=== PATIENT | male | born 1980 ===

== ENCOUNTER 2021-04-29 15:29 | Emergency (ER) | payer SELFPAY ==
[~2021-04-29] VITALS: Ht 180 cm; Wt 100.0 kg
--- NOTE | 2021-04-29 15:48 | ED Respiratory ---
General Chief Complaint: COVID19 Suspect/Confirmed Stated Complaint: COVID+,LOW OXYGEN,COUGH,WEAKNESS,CONFUSION Source: patient Exam Limitations: no limitations History of Present Illness Date Seen by Provider: Apr 29, 2021 Time Seen by Provider: 15:30 Initial Comments 41yoM otherwise healthy recently COVID positive (at home test this morning which was positive, with symptoms starting around Monday) coming in because his pulse ox was low at home. He said he put on there were 2 numbers and he was unsure which was which. One was around 81 and the other one was in the 90s. He was concerned his oxygen was in the 80s so he presented to the emergency department. Symptoms include loss of taste and smell, weakness generally, difficulty sleeping, cough. Has not been taking any medications. Not vaccinated for COVID. Allergies and Home Medications Allergies Coded Allergies: No Known Drug Allergies (Unverified , 04/29/21) Patient Home Medication List Home Medication List Reviewed: Yes Review of Systems Review of Systems Constitutional: No chills, No fever EENTM: No blurred vision Respiratory: cough, short of breath Cardiovascular: No chest pain Gastrointestinal: No abdominal pain Genitourinary: no symptoms reported Musculoskeletal: no symptoms reported Skin: no symptoms reported Psychiatric/Neurological: No Symptoms Reported Hematologic/Lymphatic: No Symptoms Reported Immunological/Allergic: no symptoms reported All Other Systems Reviewed Negative Unless Noted: Yes Past Jiwshrt-Atxivu-Buncrj Hx Patient Social History Tobacco Use?: No Substance use?: No Alcohol Use?: No Physical Exam Vital Signs - First Documented 04/29/21 15:52 Temp 37.0 Pulse 95 Resp 18 B/P (MAP) 119/64 (82) Pulse Ox 96 O2 Delivery Room Air Capillary Refill : Height: '" Weight: lbs. oz. kg; BMI Method: General Appearance: WD/WN, no apparent distress Eyes: Bilateral Eye Normal Inspection HEENT: PERRL/EOMI, normal ENT inspection, pharynx normal Neck: non-tender, full range of motion, supple, normal inspection Respiratory: chest non-tender, lungs clear, normal breath sounds, no respiratory distress, no accessory muscle use Cardiovascular: regular rate, rhythm, no edema, no murmur Gastrointestinal: normal bowel sounds, non tender, soft; No distended, No guarding, No rebound Extremities: normal range of motion, non-tender, normal inspection, no pedal edema, no calf tenderness, normal capillary refill Neurologic/Psychiatric: no motor/sensory deficits, alert, normal mood/affect Skin: normal color, warm/dry Lymphatic: no adenopathy Progress/Results/Core Measures Suspected Sepsis SIRS Temperature: Pulse: Respiratory Rate: Blood Pressure / Mean: Results/Orders My Orders Orders - LAURA ELLIS MD Chest 1 View Ap/Pa Only (04/29/21 16:00) Vital Signs/I&O 04/29/21 15:52 Temp 37.0 Pulse 95 Resp 18 B/P (MAP) 119/64 (82) Pulse Ox 96 O2 Delivery Room Air Capillary Refill : Progress Note : Progress Note 41-year-old male with above history coming in because he thought his oxygen was low at home. ABCs were intact and vitals were stable on presentation. His oxygen here averaged around 98% even with ambulation. Lungs were clear and he is well- appearing. On further questioning, he truly believes he was looking at his pulse which was in the 80s and he believes his oxygen was actually in the high 90s. Chest x-ray here ordered and interpreted by me showing no acute abnormalities including no obvious focal pneumonia or pneumothorax. I believe the patient is stable for discharge with outpatient follow-up. He was sent home with strict return precautions peer Departure Impression Primary Impression: COVID-19 Disposition: 01 HOME, SELF-CARE Condition: Stable Departure-Patient Inst. Decision time for Depature: 16:22 Referrals: LISSETTE BERGERON APRN (PCP/Family) Primary Care Physician Patient Instructions: COVID-19 ED Add. Discharge Instructions: You were seen in the emergency department because you believe your oxygen saturation was low. Fortunately you were around 96 to 98% while in the emergency department at all times. Your pulse was in the 80s most of the time, so I believe you probably worsening her pulse. When you check your oxygen be sure to leave it on for a couple minutes with taking some deep breaths before you get a good reading. If have any concerns then he can call your regular doctor or come back to the ER. Work/School Note: Work Release Form Date Seen in the Emergency Department: Apr 29, 2021 Return to Work: May 10, 2021 Restrictions: Return-No Fever (24hrs) LAURA ELLIS MD Apr 29, 2021 15:48
[2021-04-29 15:52] VITALS: BP 119/64
--- NOTE | 2021-04-29 18:19 | Diagnostic Imaging Report ---
INDICATION: Cough COMPARISON: None. FINDINGS: Frontal view of the chest demonstrates clear lungs bilaterally. The heart size is normal. There is no pneumothorax. Osseous structures are normal. IMPRESSION: No acute findings. Normal chest. Dictated by: Dictated on workstation # [id number]
== END 2021-04-29 16:36 | disposition home or self-care (01) ==
LOC: ER FS 15:32
DX: U07.1 COVID-19 (principal)
CPT/HCPCS: 71045; 99281

== ENCOUNTER 2021-08-23 06:34 | Emergency (ER) | payer OTHER ==
[~2021-08-23] VITALS: Ht 180.3 cm; Wt 109.0 kg
[2021-08-23] MEDS ORDERED: KETOROLAC 30 MG/ML VIAL IVP STA (07:01)
--- NOTE | 2021-08-23 07:05 | ED Abdominal Pain ---
General Chief Complaint: Abdominal/GI Problems Stated Complaint: LOWER ABDOMINAL PAIN Nursing Triage Note: Patient arrival per POV ambulatory to ED 6 reporting awakening this a.m. at 0200 with LLQ abd pain. Pt reports having BM x 2 that were normal. History of Present Illness Date Seen by Provider: Aug 23, 2021 Time Seen by Provider: 06:50 Initial Comments 41-year-old male presents with left lower quadrant abdominal pain. Reports that he woke up around 2:00 with some sharp stabbing pain. That he had one episode of vomiting. Patient reports he has had 2 soft bowel movements that were normal this morning. He reports that a couple days ago he had some back pain but that was after, working and bending a lot. He denies any nausea at this time. He had a little bit of chills right prior to vomiting but none since then. Allergies and Home Medications Allergies Coded Allergies: No Known Drug Allergies (Unverified , 04/29/21) Patient Home Medication List Home Medication List Reviewed: Yes Ondansetron (Ondansetron Odt) 4 Mg Tab.rapdis, 4 MG PO Q6H PRN for NAUSEA/VOMITING Prescribed by: TESFAYE STAUFFER on 08/23/21 0850 Sulfamethoxazole/Trimethoprim (Bactrim Ds Tablet) 1 Each Tablet, 1 EACH PO BID Prescribed by: TESFAYE STAUFFER on 08/23/21 0850 Tamsulosin HCl (Flomax) 0.4 Mg Cap, 0.4 MG PO DAILY Prescribed by: TESFAYE STAUFFER on 08/23/21 0850 Review of Systems Review of Systems Constitutional: chills; No fever, No weakness Respiratory: Denies Cough, Denies Shortness of Air Cardiovascular: Denies Chest Pain, Denies Palpitations Gastrointestinal: Abdominal Pain; Denies Constipated, Denies Diarrhea; Nausea, Vomiting Genitourinary: No Symptoms Reported Musculoskeletal: see HPI Skin: no symptoms reported Psychiatric/Neurological: No Symptoms Reported Endocrine: No Symptoms Reported Past Uibdhjw-Nknjtl-Pitvbh Hx Patient Social History Tobacco Use?: No Smoking Status: Never a Smoker Smokeless Tobacco Frequency: Never a User Use of E-Cig and/or Vaping Gregory: Never a User Alcohol Use?: Yes Alcohol Frequency: Once in a while Pt feels they are or have been: No Immunizations Up To Date Influenza Vaccine Up-to-Date: No; Not Current First/Initial COVID19 Vaccinat: unvaccinated Second COVID19 Vaccination Juno: unvaccinated Physical Exam Vital Signs Vital Signs - First Documented 08/23/21 06:41 Temp 36.7 Pulse 77 Resp 18 B/P (MAP) 142/88 (106) Pulse Ox 96 O2 Delivery Room Air Capillary Refill : Less Than 3 Seconds Height/Weight/BMI Height: '" Weight: lbs. oz. kg; 33.00 BMI Method: General Appearance: WD/WN, no apparent distress Respiratory: lungs clear, normal breath sounds, no respiratory distress Cardiovascular: normal peripheral pulses, regular rate, rhythm Gastrointestinal: soft; No distended, No guarding, No rebound; tenderness (Mild tenderness left lower quadrant) Back: no CVA tenderness Neurologic/Psychiatric: alert, normal mood/affect, oriented x 3 Skin: normal color, warm/dry Progress/Results/Core Measures Results/Orders Lab Results Laboratory Tests Test 08/23/21 06:46 08/23/21 07:21 Range/Units White Blood Count 7.7 4.3-11.0 10^3/uL Red Blood Count 5.19 4.30-5.52 10^6/uL Hemoglobin 15.5 13.3-17.7 g/dL Hematocrit 43 40-54 % Mean Corpuscular Volume 83 80-99 fL Mean Corpuscular Hemoglobin 30 25-34 pg Mean Corpuscular Hemoglobin Concent 36 32-36 g/dL Red Cell Distribution Width 11.6 10.0-14.5 % Platelet Count 230 130-400 10^3/uL Mean Platelet Volume 10.4 9.0-12.2 fL Immature Granulocyte % (Auto) 1 % Neutrophils (%) (Auto) 60 42-75 % Lymphocytes (%) (Auto) 26 12-44 % Monocytes (%) (Auto) 9 0-12 % Eosinophils (%) (Auto) 4 0-10 % Basophils (%) (Auto) 1 0-10 % Neutrophils # (Auto) 4.6 1.8-7.8 10^3/uL Lymphocytes # (Auto) 2.0 1.0-4.0 10^3/uL Monocytes # (Auto) 0.7 0.0-1.0 10^3/uL Eosinophils # (Auto) 0.3 0.0-0.3 10^3/uL Basophils # (Auto) 0.1 0.0-0.1 10^3/uL Immature Granulocyte # (Auto) 0.0 0.0-0.1 10^3/uL Sodium Level 140 135-145 MMOL/L Potassium Level 4.4 3.6-5.0 MMOL/L Chloride Level 103 98-107 MMOL/L Carbon Dioxide Level 26 21-32 MMOL/L Anion Gap 11 5-14 MMOL/L Blood Urea Nitrogen 15 7-18 MG/DL Creatinine 1.17 0.60-1.30 MG/DL Estimat Glomerular Filtration Rate 81 BUN/Creatinine Ratio 13 Glucose Level 129 H 70-105 MG/DL Calcium Level 9.2 8.5-10.1 MG/DL Corrected Calcium 8.5-10.1 MG/DL Total Bilirubin 0.9 0.1-1.0 MG/DL Aspartate Amino Transf (AST/SGOT) 20 5-34 U/L Alanine Aminotransferase (ALT/SGPT) 28 0-55 U/L Alkaline Phosphatase 69 40-136 U/L C-Reactive Protein < 0.30 <0.50 MG/DL Total Protein 7.2 6.4-8.2 GM/DL Albumin 4.8 H 3.2-4.5 GM/DL Lipase 16 8-78 U/L Urine Color BROWN H Urine Clarity TURBID Urine pH 6.0 5-9 Urine Specific [place] >=1.030 1.016-1.022 Urine Protein 1+ H NEGATIVE Urine Glucose (UA) NEGATIVE NEGATIVE Urine Ketones NEGATIVE NEGATIVE Urine Nitrite NEGATIVE NEGATIVE Urine Bilirubin 1+ H NEGATIVE Urine Urobilinogen 0.2 < = 1.0 MG/DL Urine Leukocyte Esterase NEGATIVE NEGATIVE Urine RBC (Auto) 3+ H NEGATIVE Urine RBC TNTC H /HPF Urine WBC 5-10 H /HPF Urine Squamous Epithelial Cells 0-2 /HPF Urine Crystals NONE /LPF Urine Bacteria FEW H /HPF Urine Casts NONE /LPF Urine Mucus MODERATE H /LPF Urine Culture Indicated YES My Orders Orders - TESFAYE STAUFFER DO Cbc With Automated Diff (08/23/21 07:01) Comprehensive Metabolic Panel (08/23/21 07:01) Lipase (08/23/21 07:01) Ua Culture If Indicated (08/23/21 07:01) Crp Fs (08/23/21 07:01) Ketorolac Injection (Toradol Injection) (08/23/21 07:01) Ondansetron Injection (Zofran Injectio (08/23/21 07:15) Ct Abdomen/Pelvis Wo (08/23/21 07:43) Urine Culture (08/23/21 07:21) Medications Given in ED Current Medications Medications Dose Ordered Sig/Camila Route Start Time Stop Time Status Last Admin Dose Admin Ondansetron HCl 4 mg ONCE ONCE IVP 08/23/21 07:15 08/23/21 07:16 DC 08/23/21 07:08 4 MG Vital Signs/I&O 08/23/21 06:41 Temp 36.7 Pulse 77 Resp 18 B/P (MAP) 142/88 (106) Pulse Ox 96 O2 Delivery Room Air Blood Pressure Mean: 106 Progress Progress Note : Progress Note Patient with 2 small proximal kidney stones. We will start him on Flomax, give him some Zofran to get his ibuprofen for pain. 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 Recommend he follow-up with Dr. Malloy or other urologist of his choice. Patient stable and discharged home Diagnostic Imaging Diagonstic Imaging: CT Plain Films/CT/US/NM/MRI: abdomen, pelvis Comments Date of Exam:08/23/21 CT ABDOMEN/PELVIS WO PROCEDURE: CT abdomen and pelvis without contrast. TECHNIQUE: Multiple contiguous axial images were obtained through the abdomen and pelvis without the use of intravenous contrast. Auto Exposure Controls were utilized during the CT exam to meet ALARA standards for radiation dose reduction. INDICATION: Left lower quadrant pain, abdominal pain COMPARISON: None available FINDINGS: Minimal left basilar atelectasis. The unenhanced liver and spleen are unremarkable. The adrenal glands are unremarkable. The pancreas is unremarkable. The gallbladder is unremarkable. Tiny nonobstructing right renal calculi. Otherwise, the right kidney and right ureter are unremarkable. A couple of calculi are identified within the proximal left ureter. The largest measures up to 0.4 cm. This is associated with mild left-sided hydroureteronephrosis. Additional tiny left-sided renal calculi are present. No aneurysmal dilatation of the abdominal aorta. Small fat-containing umbilical hernia. The appendix is unremarkable. The urinary bladder is unremarkable. Small prostatic calcifications. No bowel obstruction or pneumatosis. No significant adenopathy, free air, or free fluid in abdomen or pelvis. Mild scattered osseous degenerative changes without acute osseous abnormality. IMPRESSION: 2 calculi are present within the proximal left ureter resulting in mild left hydroureteronephrosis, with largest stone measuring up to 0.4 cm. Additional bilateral small renal calculi, nonobstructing on the right. Reviewed: Reviewed by Me, Reviewed/Discussed Departure Impression Primary Impression: Calculus of proximal left ureter Disposition: HOME, SELF-CARE Condition: Stable Departure-Patient Inst. Referrals: LISSETTE BERGERON APRN (PCP/Family) Primary Care Physician Patient Instructions: Kidney Stones in Adults, How to Strain Your Urine Add. Discharge Instructions: Ibuprofen 600 to 800 mg 3-4 times daily as needed for pain Follow-up with the urologist of your choice for further outpatient management and recheck Return to the ER as needed All discharge instructions reviewed with patient and/or family. Voiced understanding. Scripts Sulfamethoxazole/Trimethoprim (Bactrim Ds Tablet) 1 Each Tablet 1 EACH PO BID for 5 Days, #10 TAB . Prov: TESFAYE STAUFFER DO 08/23/21 Tamsulosin HCl (Flomax) 0.4 Mg Cap 0.4 MG PO DAILY, #14 CAP . Prov: TESFAYE STAUFFER DO 08/23/21 Ondansetron (Ondansetron Odt) 4 Mg Tab.rapdis 4 MG PO Q6H PRN for NAUSEA/VOMITING, #20 TAB 0 Refills . Prov: TESFAYE STAUFFER DO 08/23/21 TESFAYE STAUFFER DO Aug 23, 2021 07:05
[2021-08-23] MEDS ORDERED: ONDANSETRON 4 MG/2 ML (SDV) Z0FRAN IVP ONE (07:15)
[2021-08-23 07:19] LABS: BASOPHILS # (AUTO) 0.1 10^3/uL (0.0-0.1); BASOPHILS % (AUTO) 1 % (0-10); EOSINOPHILS # (AUTO) 0.3 10^3/uL (0.0-0.3); EOSINOPHILS % (AUTO) 4 % (0-10); HEMATOCRIT 43 % (40-54); HEMOGLOBIN 15.5 g/dL (13.3-17.7); LYMPHOCYTES % (AUTO) 26 % (12-44); MEAN CORPUSCULAR HEMOGLOBIN 30 pg (25-34); MEAN CORPUSCULAR HGB CONC 36 g/dL (32-36); MEAN CORPUSCULAR VOLUME 83 fL (80-99); MEAN PLATELET VOLUME 10.4 fL (9.0-12.2); MONOCYTES # (AUTO) 0.7 10^3/uL (0.0-1.0); MONOCYTES % (AUTO) 9 % (0-12); NEUTROPHILS # (AUTO) 4.6 10^3/uL (1.8-7.8); NEUTROPHILS % (AUTO) 60 % (42-75); PLATELET COUNT 230 10^3/uL (130-400); WHITE BLOOD COUNT 7.7 10^3/uL (4.3-11.0)
[2021-08-23 07:32] LABS: ALANINE AMINOTRANSFERASE 28 U/L (0-55); ALBUMIN 4.8 GM/DL (3.2-4.5); ALKALINE PHOSPHATASE 69 U/L (40-136); BILIRUBIN,TOTAL 0.9 MG/DL (0.1-1.0); BUN/CREATININE RATIO 13; CALCIUM 9.2 MG/DL (8.5-10.1); CARBON DIOXIDE 26 MMOL/L (21-32); CHLORIDE 103 MMOL/L (98-107); CREATININE SERUM 1.17 MG/DL (0.60-1.30); GFR ESTIMATED 81; GLUCOSE 129 MG/DL (70-105); LIPASE 16 U/L (8-78); POTASSIUM 4.4 MMOL/L (3.6-5.0); SODIUM 140 MMOL/L (135-145); TOTAL PROTEIN 7.2 GM/DL (6.4-8.2)
[2021-08-23 08:20] LABS: CLARITY,URINE TURBID; GLUCOSE, URINE (UA) NEGATIVE (NEGATIVE); KETONES,URINE NEGATIVE (NEGATIVE); LEUKOCYTE ESTERASE ,URINE NEGATIVE (NEGATIVE); NITRITE,URINE NEGATIVE (NEGATIVE); PROTEIN,URINE 1+ (NEGATIVE)
--- NOTE | 2021-08-23 08:21 | Diagnostic Imaging Report ---
PROCEDURE: CT abdomen and pelvis without contrast. TECHNIQUE: Multiple contiguous axial images were obtained through the abdomen and pelvis without the use of intravenous contrast. Auto Exposure Controls were utilized during the CT exam to meet ALARA standards for radiation dose reduction. INDICATION: Left lower quadrant pain, abdominal pain COMPARISON: None available FINDINGS: Minimal left basilar atelectasis. The unenhanced liver and spleen are unremarkable. The adrenal glands are unremarkable. The pancreas is unremarkable. The gallbladder is unremarkable. Tiny nonobstructing right renal calculi. Otherwise, the right kidney and right ureter are unremarkable. A couple of calculi are identified within the proximal left ureter. The largest measures up to 0.4 cm. This is associated with mild left-sided hydroureteronephrosis. Additional tiny left-sided renal calculi are present. No aneurysmal dilatation of the abdominal aorta. Small fat-containing umbilical hernia. The appendix is unremarkable. The urinary bladder is unremarkable. Small prostatic calcifications. No bowel obstruction or pneumatosis. No significant adenopathy, free air, or free fluid in abdomen or pelvis. Mild scattered osseous degenerative changes without acute osseous abnormality. IMPRESSION: 2 calculi are present within the proximal left ureter resulting in mild left hydroureteronephrosis, with largest stone measuring up to 0.4 cm. Additional bilateral small renal calculi, nonobstructing on the right. Additional findings as above. Dictated by: Dictated on workstation # [id number]
[2021-08-23 08:27] LABS: COLOR,URINE BROWN
[2021-08-23 08:35] LABS: BACTERIA,URINE FEW /HPF; BILIRUBIN,URINE 1+ (NEGATIVE); RBC,URINE TNTC /HPF; SQUAMOUS EPITHELIAL CELL,UR 0-2 /HPF
[2021-08-23] MEDS ORDERED: ONDA4TAB11 PO ×2 (08:42→08:50)
[2021-08-23] MEDS ORDERED: TMSL.4C PO ×2 (08:42→08:50)
[2021-08-23] MEDS ORDERED: SULF1TAB38 PO ×2 (08:43→08:50)
[2021-08-23 08:56] VITALS: BP 121/79
== END 2021-08-23 08:50 | disposition home or self-care (01) ==
LOC: EDUNIT# 06:34 → ER FS 06:41
DX: N13.2 Hydronephrosis with renal and ureteral calculous obstruction (principal)
CPT/HCPCS: 36415; 74176; 80053; 81000; 83690; 85025; 86141; 87088